=== PATIENT | male | born 1930 | race Two or more races ===

== ENCOUNTER 2018-06-08 21:50 | Inpatient (IN) | payer MEDICARE ==
[~2018-06-08] VITALS: Ht 177.8 cm; Wt 54.9 kg
--- NOTE | 2018-06-08 21:52 | NUR ---
PT BIBRA C/O SOB X12 HOURS, PER EMS WAS 86% ON RA, TACHYPNEIC, RHONCHI, ON CPAP FROM EMS. PT ON MONITOR IN BED 8. WILL CONTINUE TO MONITOR.
[2018-06-08] MEDS ORDERED: LIDOCAINE 2% JEL UROJET 10 ML MM ONE (22:02)
[2018-06-08 22:04] VITALS: BP 142/98
--- NOTE | 2018-06-08 22:06 | NUR ---
RT PT PLACED ON BIPAP PER MD ORDERS. PT TOLERATING SETTING WELL. FOLLOW UP ABG. Addendum: 06/08/18 at 2208 by JAMEY POWER RT Amended: Links added.
[2018-06-08 22:24] LABS: BASOPHILS # (AUTO) 0.1 /CMM (0.0-0.2); BASOPHILS % (AUTO) 0.4 % (0.0-2.0); EOSINOPHILS % (AUTO) 1.1 % (0.0-6.0); HEMATOCRIT 46 % (39-51); HEMOGLOBIN 14.9 g/dL (13.5-17.5); LYMPHOCYTES # (AUTO) 1.7 /CMM (0.8-4.8); LYMPHOCYTES % (AUTO) 9.1 % (20.0-44.0); MEAN CORPUSCULAR HGB CONC 33 g/dl (31.0-36.0); MEAN CORPUSCULAR VOLUME 92 fL (80-96); MONOCYTES # (AUTO) 1.7 /CMM (0.1-1.30); MONOCYTES % (AUTO) 9.3 % (2.0-12.0); NEUTROPHILS % (AUTO) 80.1 % (43.0-81.0); PLATELET COUNT (AUTO) 240 /CMM (150-450); RED BLOOD CELL COUNT(AUTO) 4.96 MIL/uL (4.5-6.0); WHITE BLOOD COUNT (AUTO) 18.8 K/uL (4.3-11.0)
[2018-06-08] MEDS ORDERED: CEFTRIAXONE 1 G in IV D5W 50 ML IV ONE (22:30)
[2018-06-08] MEDS ORDERED: NITROGLYCERIN PACKET 1 GM PACKET TD ONE (22:30)
[2018-06-08] MEDS ORDERED: FUROSEMIDE 40 MG/4 ML VIAL IV ONE (22:30)
[2018-06-08 22:33] LABS: CALCIUM, SERUM 9.1 mg/dL (8.5-10.1); CARBON DIOXIDE 33 mmol/L (21-32); CHLORIDE 99 mmol/L (98-107); GLUCOSE 117 mg/dL (74-106); POTASSIUM 3.7 mmol/L (3.5-5.1); SODIUM SERUM 141 mmol/L (136-145); UREA NITROGEN, BLOOD 13 mg/dL (7-18)
[2018-06-08] MEDS ORDERED: NITROGLYCERIN PACKET 1 GM PACKET ONE (22:33)
[2018-06-08] MEDS ORDERED: CEFTRIAXONE 1GM BAG (ER ONLY) 50 ML IV ONE (22:33)
[2018-06-08] MEDS ORDERED: FUROSEMIDE 40 MG/4 ML VIAL ONE (22:33)
[2018-06-08] MEDS ORDERED: AMOX/CLAVULANATE 875 MG TABLET ONE (22:39)
[2018-06-08 22:45] LABS: ALANINE AMINOTRANSFERASE 14 U/L (12-78); ALBUMIN 3.9 g/dL (3.4-5.0); ALKALINE PHOSPHATASE 86 U/L (46-116); ASPARTATE AMINOTRANSFERASE 13 U/L (15-37); B-TYPE NATRIURETIC PEPTIDE 3137 PG/ML (0-125); BILIRUBIN,DIRECT 0.2 mg/dL (0.0-0.2); TOTAL PROTEIN, SERUM 7.3 g/dL (6.4-8.2)
[2018-06-08] MEDS ORDERED: IV PREMIX D5 1/2NS + KCL 1,000 ML IV ONE ×2 (22:47→22:55)
[2018-06-08 23:18] LABS: ABG BASE EXCESS 6.5 mmol/L; ABG OXYGEN SATURATION 99.3 % (92.0-98.5); ABG PCO2 49.9 mmHg (35.0-45.0); ABG PH 7.428 (7.350-7.450); ABG PO2 368.4 mmHg (75.0-100.0); AaDO2 149.6 mmHg; COHb 0.9 % (0.5-1.5); MetHb 0.6 % (0.0-1.5); O2Hb 97.8 % (94.0-97.0); SITE, ABG Right Radial; VENT MODE, BG bipap 15/5 r14 80%
[2018-06-08 23:21] VITALS: BP 105/75
--- NOTE | 2018-06-08 23:26 | NUR ---
FAMILY AT BEDSIDE
[2018-06-08] MEDS ORDERED: LEVOFLOXACIN 500 MG /D5W 100ML 500 MG in PREMIX 1 EA IV SCH (23:30)
[2018-06-08] MEDS ORDERED: LEVOFLOXACIN 500 MG /D5W 100ML 100 ML IV ONE (23:32)
[2018-06-08] MEDS: LEVOFLOXACIN 500 MG /D5W 100ML 500 MG in PREMIX 1 EA IV SCH (23:47)
--- NOTE | 2018-06-08 23:59 | NUR ---
NOTICED ORDER WAS PLACED WRONG BY DR. GUARDADO "LEVAQUIN 500 MG [id number]"; INFORMED HIM TO CHANGE ORDER TO "ONCE" AN ER ORDER. DR. GUARDADO CHANGED THE ORDER BUT WAS UNABLE TO UNDO INITIAL WRONG ORDER.
[2018-06-09] VITALS (18 sets, daily range): BP systolic 77–122; BP diastolic 50–75
[2018-06-09] MEDS ORDERED: LEVOFLOXACIN 500 MG /D5W 100ML 500 MG in PREMIX 1 EA IV SCH ×2
--- NOTE | 2018-06-09 00:29 | NUR ---
REPORT GIVEN TO VITALIY LYON FOR ZEE
[2018-06-09] MEDS: LEVOFLOXACIN 500 MG /D5W 100ML 500 MG in PREMIX 1 EA IV SCH (00:40)
--- NOTE | 2018-06-09 00:40 | NUR ---
RECEIVED PT IN NO ACUTE DISTRESS IN BED. PT IS ON NC @ 2LPM AND TOLERATING WELL WITH O2 SAT @ 95%. PT IS ON TELE WITH AFIB WITH BBB ON THE MONITOR. PT HAS RESCUE BIPAP AT BEDSIDE IF NEEDED. PT HAS COUGH WITH AUDIBLE PHLEM IN THROAT, PT UNABLE TO COUGH IT UP. TRIED TO SUCTION PT BUT UNABLE TO. PT HAS LEFT AC 20G THAT IS CLEAN DRY INTACT AND PATENT WITH SALINE FLUSH. PT HAS RIGHT FOREARM 20G THAT IS CLEAN DRY INTACT AND PATENT WITH D5NS WITH 20MEQ K @ 100ML/HR. BED IN LOW LOCK POSITION WITH RIALS UP X 2. CALL LIGHT WITHIN REACH AND ALL SAFETY MEASURES ENSURED AND CARRIED OUT. WILL CONTINUE TO MONITOR.
--- NOTE | 2018-06-09 01:20 | NUR ---
DR MCKEON AT BEDSIDE.
[2018-06-09] MEDS ORDERED: ACETAMINOPHEN 325 MG TABLET PO PRN (02:00)
[2018-06-09] MEDS ORDERED: TEMAZEPAM 7.5 MG CAPSULE PO PRN (02:00)
[2018-06-09] MEDS ORDERED: ONDANSETRON HCL/PF 4 MG/2 ML VIAL IVP PRN (02:00)
[2018-06-09] MEDS ORDERED: HYDROCODONE/APAP 5/325MG 1 EACH TABLET PO PRN (02:00)
[2018-06-09] MEDS ORDERED: GUAIFENESIN/D-METHORPHAN HB 5 ML UDC PO PRN (02:30)
[2018-06-09] MEDS ORDERED: IPRATROPIUM NEB FS 0.5 MG/2.5 ML AMPUL.NEB NEB PRN (02:30)
[2018-06-09] MEDS ORDERED: ALBUTEROL FS 2.5 MG/3 ML VIAL.NEB NEB PRN (02:30)
[2018-06-09] MEDS ORDERED: DOCU-141 PO (02:34)
[2018-06-09] MEDS ORDERED: METO50TA16 PO (02:34)
[2018-06-09] MEDS ORDERED: FLUT1BLS IH ×2 (02:34)
[2018-06-09] MEDS ORDERED: BUDE0.5A4 NEB (02:34)
[2018-06-09] MEDS ORDERED: LOSA50TA39 PO (02:34)
[2018-06-09] MEDS ORDERED: LACT-239 PO (02:34)
[2018-06-09] MEDS ORDERED: FURO-145 PO (02:34)
[2018-06-09] MEDS ORDERED: ACET-868 PO (02:34)
[2018-06-09] MEDS ORDERED: POTA20TA83 PO (02:34)
[2018-06-09] MEDS ORDERED: LIDOCAINE 2% JEL UROJET 10 ML MM ONE ×2 (02:47→03:00)
--- NOTE | 2018-06-09 03:00 | NUR ---
LIMA CATHETER SUCCESSFULLY PLACED WITH GOOD URINE OUTPUT. URINE CLEAR AND YELLOW. WILL CONTINUE TO MONITOR.
[2018-06-09 04:40] LABS: BASOPHILS # (AUTO) 0.1 /CMM (0.0-0.2); BASOPHILS % (AUTO) 0.4 % (0.0-2.0); HEMATOCRIT 41 % (39-51); LYMPHOCYTES # (AUTO) 1.1 /CMM (0.8-4.8); MEAN CORPUSCULAR HGB CONC 33 g/dl (31.0-36.0); MEAN CORPUSCULAR VOLUME 91 fL (80-96); MONOCYTES # (AUTO) 1.5 /CMM (0.1-1.30); NEUTROPHILS # (AUTO) 13.6 /CMM (1.8-8.9); WHITE BLOOD COUNT (AUTO) 16.4 K/uL (4.3-11.0)
[2018-06-09 04:57] LABS: ALANINE AMINOTRANSFERASE 11 U/L (12-78); ALBUMIN 3.2 g/dL (3.4-5.0); ALKALINE PHOSPHATASE 69 U/L (46-116); ASPARTATE AMINOTRANSFERASE 11 U/L (15-37); BILIRUBIN,TOTAL 0.9 mg/dL (0.2-1.0); CALCIUM, SERUM 8.9 mg/dL (8.5-10.1); CARBON DIOXIDE 34 mmol/L (21-32); CHLORIDE 101 mmol/L (98-107); GLUCOSE 132 mg/dL (74-106); MAGNESIUM 1.7 mg/dL (1.8-2.4); POTASSIUM 3.3 mmol/L (3.5-5.1); SODIUM SERUM 141 mmol/L (136-145); TOTAL PROTEIN, SERUM 6.2 g/dL (6.4-8.2); UREA NITROGEN, BLOOD 13 mg/dL (7-18)
[2018-06-09 05:11] LABS: FREE PSA 0.11 ng/mL (0.00-45); PROSTATE SPECIFIC ANTIGEN SCR 0.29 ng/mL (0.00-4.00)
[2018-06-09 05:14] LABS: CHOLESTEROL 103 mg/dL (<200); HDL CHOLESTEROL 50 mg/dL (40-60); LDL 56 mg/dL (0-99); THYROID STIMULATING HORMONE 0.571 uIU/mL (0.358-3.74); TRIGLYCERIDES 44 mg/dL (30-150)
[2018-06-09] MEDS ORDERED: Magnesium 1GM/D5W 100ML PREMIX 100 ML IV SCH (07:00)
--- NOTE | 2018-06-09 07:15 | NUR ---
RN INITIAL NOTES RECEIVED PT AWAKE, A/OX1-2. ON 02 AT 2LPM VIA NC. NO RESPIRATORY DISTRESS NOTED. NO SOB NOTED. NO SIGNS OF PAIN NOTED. IV LINES IN PLACE. IVF INFUSING. FC IN PLACE. NO HEMATURIA NOTED. BLE ELEVATED. PT COMFORTABLE. WILL MONITOR.
--- NOTE | 2018-06-09 07:43 | NUR ---
PT REMAINS IN NO ACUTE DISTRESS IN BED. PT DID NOT HAVE ANY SIGNIFICANT CHANGE IN CONDITION DURING SHIFT. ALL NEEDS MET, ALL ORDERS CARRIED OUT. WILL ENDORSE CARE TO AM RN FOR CONTINUITY OF CARE.
[2018-06-09] MEDS: PANTOPRAZOLE 40 MG VIAL IV SCH (08:22)
[2018-06-09] MEDS: POTASSIUM CHLORIDE 20 MEQ POWDER PACKET PO SCH (08:22)
--- NOTE | 2018-06-09 09:00 | NUR ---
RN NOTES 0830 SEEN AND EXAMINED BY DR DORANTES. MF AWARE OF LAB VALUES: WBC 16.4, ON IV ATB. NO ASE NOTED. POTASSIUM 3.3, ON KLORCON 40MEQ DAILY. MAGNESIUM 1.7, REPLACED. PT FOR ECHO AND CT HEAD WITHOUT CONTRAST. PER MD, PT OK TO DOWNGRADE. WILL MONITOR 0900 SEEN AND EXAMINED BY DR HERNANDEZ. PT ON 02 AT 2LPM VIA NC. 02 SAT >94%. NO SOB NOTED. NO RESPIRATORY DISTRESS NOTED. KEPT HOB ELEVATED. PT CLEAR FOR DOWNGRADE PER MD. WILL MONITOR.
[2018-06-09] MEDS: FLUTICASONE/VILANTEROL 1 EACH BLST.W.DEV IH SCH (09:17)
[2018-06-09 09:36] LABS: EOSINOPHILS % (AUTO) 0.3 % (0.0-6.0); HEMOGLOBIN 13.5 g/dL (13.5-17.5); LYMPHOCYTES % (AUTO) 6.9 % (20.0-44.0); MONOCYTES % (AUTO) 9.1 % (2.0-12.0); NEUTROPHILS % (AUTO) 83.3 % (43.0-81.0); PLATELET COUNT (AUTO) 220 /CMM (150-450)
[2018-06-09] MEDS: ENSURE CLEAR 237 ML LIQUID (MIX BERRY) PO SCH ×2 (10:21→17:02)
[2018-06-09] MEDS: ACETYLCYSTEINE 10% SOLN 400 MG/4 ML VIAL NEB SCH ×2 (10:50→14:50)
--- NOTE | 2018-06-09 11:30 | NUR ---
RN NOTES PT TRANSFERRED TO ROOM 120-2. PT AWAKE, A/OX1-2. ON 02 VIA NC. NO SOB NOTED. DENIES ANY PAIN. VS WNL. IN STABLE CONDITION. ISABELLE BURKS TOOK OVER PT'S CARE.
--- NOTE | 2018-06-09 12:00 | NUR ---
HOUSECLEANER INITIAL NOTES Patient brought in by bed from ICU for continuity of care. Patient is awake, oriented to self only, confused, uncooperative upon skin body reassessment, leads applied for tele monitor. On oxygen at 2L/min via NC, denies pain. Flores intact, draining to gravity. Maintained safety, will cont to monitor.
[2018-06-09] MEDS: ALBUTEROL FS 2.5 MG/3 ML VIAL.NEB NEB SCH ×2 (14:49→19:30)
[2018-06-09] MEDS: IPRATROPIUM NEB FS 0.5 MG/2.5 ML AMPUL.NEB NEB SCH ×2 (14:49→19:30)
[2018-06-09] MEDS: DOCUSATE SODIUM 100 MG CAPSULE PO SCH (16:56)
--- NOTE | 2018-06-09 17:13 | NUR ---
PM CARE RENDERED, REPOSITIONED PATIENT. PATIENT COMPLAIN OF SCROTAL PAIN DURING PERINEAL CARE, PO PRN TYLENOL GIVEN, WILL REASSESS. V-TACH IN THE TELE MONITOR REPORTED, NOTIFIED DR. DORANTES WITH NO NEW ORDERS AT THIS TIME.
--- NOTE | 2018-06-09 18:43 | NUR ---
NEUROPSYCHOLOGY DIVISION CHIEF CLOSING NOTES Patient in bed, assisted with feeding, poor appetite, on nutritional supplement provided. Stable on RA, still Ventricular, V-tach with junctional rhythm in the tele monitor, MD is aware. Dr. López/cardio to see the patient. Flores intact, draining to gravity, bag off the floor. Magnesium was supplemented today prior transfer from ICU, low potassium 3.3, did not receive additional supplement per report, patient is on KCL 40meq daily. Maintained safety, will endorse to oncoming RN.
[2018-06-10] VITALS: BP 102/71
[2018-06-10] MEDS: ACETYLCYSTEINE 10% SOLN 400 MG/4 ML VIAL NEB SCH ×3 (00:28→14:43)
[2018-06-10] MEDS: IPRATROPIUM NEB FS 0.5 MG/2.5 ML AMPUL.NEB NEB SCH ×4 (00:31→20:04)
[2018-06-10] MEDS: ALBUTEROL FS 2.5 MG/3 ML VIAL.NEB NEB SCH ×4 (00:31→20:04)
[2018-06-10] MEDS: LEVOFLOXACIN 250 MG /D5W 50 ML 250 MG in PREMIX 1 EA IV SCH (00:38)
[2018-06-10 04:00] VITALS: BP 104/58
[2018-06-10 08:00] VITALS: BP 106/58
[2018-06-10] MEDS: FLUTICASONE/VILANTEROL 1 EACH BLST.W.DEV IH SCH ×2 (09:00→09:57)
[2018-06-10] MEDS: DOCUSATE SODIUM 100 MG CAPSULE PO SCH ×2 (09:56→19:06)
[2018-06-10] MEDS: POTASSIUM CHLORIDE 20 MEQ POWDER PACKET PO SCH (09:56)
[2018-06-10] MEDS: PANTOPRAZOLE 40 MG VIAL IV SCH (09:56)
[2018-06-10] MEDS: ENSURE CLEAR 237 ML LIQUID (MIX BERRY) PO SCH ×2 (09:56→19:05)
[2018-06-10 12:00] VITALS: BP 109/61
[2018-06-10] MEDS ORDERED: LORAZEPAM INJ 2 MG/ML VIAL IV PRN (14:00)
--- NOTE | 2018-06-10 15:48 | NUR ---
DEBT RECOVERY OFFICER NOTE PATIENT VERY AGITATED AND WITH AGGRESSIVE BEHAVIOR, HITTING AND KICKING AND PULLED OUT AN IV SITE ON LEFT AC. ATTEMPTED TO REORIENT PATIENT WITH NO SUCCESS. PATIENT CONTINUED TO HIT AND YELL. APPLIED BILATERAL SOFT WRIST RESTRAINTS. CONTACTED MD IMMEDIATELY AND RECEIVED AN ORDER FOR RESTRAINTS AND PSYCH CONSULT AND PRN IV ATIVAN. PATIENT SAFETY CHECKED AND ASSURED FREQUENTLY, REORIENTED. WILL CONTINUE TO MONITOR CLOSELY. ALSO FAXED FACE SHEET TO [employer] FOR PSYCH CONSULT.
[2018-06-10 16:00] VITALS: BP 128/58
--- NOTE | 2018-06-10 19:30 | NUR ---
[facility]G RN NOTE PATIENT RESTING IN BED IN STABLE CONDITION, NO SIGNS OF PAIN OR RESPIRATORY DISTRESS NOTED. PATIENT WITH VERY AGGRESSIVE BEHAVIOR THROUGHOUT THE DAY, BILATERAL SOFT WRIST RESTRAINTS ON. FREQUENTLY OFFERED FLUIDS AND SNACKS, PO INTAKE OK TODAY. IV SITE ON RIGHT FOREARM INTACT SALINE LOCK. BED ALARM ON, CALL LIGHT WITHIN REACH, BED IN LOW LOCKED POSITION, ENDORSED TO WELDING PROCESS SPECIALIST NURSE FOR CONTINUITY OF CARE.
[2018-06-10 20:00] VITALS: BP 115/67
[2018-06-10] MEDS: METOPROLOL TARTRATE 25 MG TABLET PO SCH (21:09)
[2018-06-11] MEDS: LEVOFLOXACIN 250 MG /D5W 50 ML 250 MG in PREMIX 1 EA IV SCH (00:24)
[2018-06-11] MEDS: IPRATROPIUM NEB FS 0.5 MG/2.5 ML AMPUL.NEB NEB SCH ×2 (01:30→07:39)
[2018-06-11] MEDS: ALBUTEROL FS 2.5 MG/3 ML VIAL.NEB NEB SCH ×2 (01:30→07:39)
[2018-06-11] MEDS: ACETYLCYSTEINE 10% SOLN 400 MG/4 ML VIAL NEB SCH ×2 (01:30→07:39)
[2018-06-11 06:42] LABS: BASOPHILS % (AUTO) 0.4 % (0.0-2.0); EOSINOPHILS % (AUTO) 2.4 % (0.0-6.0); HEMATOCRIT 37 % (39-51); HEMOGLOBIN 12.4 g/dL (13.5-17.5); LYMPHOCYTES # (AUTO) 1.1 /CMM (0.8-4.8); LYMPHOCYTES % (AUTO) 9.6 % (20.0-44.0); MEAN CORPUSCULAR HGB CONC 33 g/dl (31.0-36.0); MEAN CORPUSCULAR VOLUME 90 fL (80-96); MONOCYTES # (AUTO) 1.3 /CMM (0.1-1.30); MONOCYTES % (AUTO) 11.6 % (2.0-12.0); NEUTROPHILS # (AUTO) 8.4 /CMM (1.8-8.9); PLATELET COUNT (AUTO) 214 /CMM (150-450); RED BLOOD CELL COUNT(AUTO) 4.13 MIL/uL (4.5-6.0); WHITE BLOOD COUNT (AUTO) 11.1 K/uL (4.3-11.0)
[2018-06-11 06:58] LABS: CALCIUM, SERUM 8.8 mg/dL (8.5-10.1); CARBON DIOXIDE 34 mmol/L (21-32); CHLORIDE 103 mmol/L (98-107); GLUCOSE 79 mg/dL (74-106); PHOSPHORUS 2.7 mg/dL (2.5-4.9); POTASSIUM 3.5 mmol/L (3.5-5.1); SODIUM SERUM 141 mmol/L (136-145); UREA NITROGEN, BLOOD 16 mg/dL (7-18)
--- NOTE | 2018-06-11 07:30 | NUR ---
RN OPENING NOTES RECEIVED PATIENT IN BED, AWAKE, A/OX1. WITH EPISODE OF CONFUSION. ABLE TO MAKE NEEDS KNOWN. PATIENT ON OXYGEN SUPPORT VIA NASAL CANNULA AT 2 LPM. NO S/SX OF DISTRESS, NO SOB NOTED AT THIS TIME. SKIN IS WARM TO TOUCH, IV LINE ON L FA G20: IN PLACE AND INTACT: SL. BILATERAL ARM ON SOFT RESTRAINTS: RELEASE AND REPLACE FOR ASSESSMENT. SKIN INTACT, NO NEW SKIN BREAKDOWN OR DISCOLORATION NOTED. ABLE TO MOVE HANDS FREELY. SAFETY MEASURES OBSERVED AND MAINTAINED. HOB ELEVATED. SRX2, BED IN LOCKED/LOWEST POSITION. CALL LIGHT IN REACH. WILL CONT TO MONITOR
[2018-06-11 08:00] VITALS: BP_SYST 120; BP_SYST 133; BP_DIAS 72; BP_DIAS 85
[2018-06-11] MEDS: PANTOPRAZOLE 40 MG VIAL IV SCH (09:41)
[2018-06-11] MEDS: POTASSIUM CHLORIDE 20 MEQ POWDER PACKET PO SCH (09:41)
[2018-06-11] MEDS: DOCUSATE SODIUM 100 MG CAPSULE PO SCH (09:41)
[2018-06-11 09:42] VITALS: BP 133/85
[2018-06-11] MEDS: ENSURE CLEAR 237 ML LIQUID (MIX BERRY) PO SCH (09:42)
[2018-06-11] MEDS: METOPROLOL TARTRATE 25 MG TABLET PO SCH (09:42)
[2018-06-11] MEDS: FLUTICASONE/VILANTEROL 1 EACH BLST.W.DEV IH SCH (09:42)
--- NOTE | 2018-06-11 11:00 | NUR ---
m/s tip tester: notes Spoke with Kathy (barn hand)/[facility] [phone] and informed her that pt is returning there and leaving here at 1300 via ambulance, spoke to her over the phone, stated, "please send all the paperworks."
--- NOTE | 2018-06-11 11:24 | NUR ---
m/s hay farmer: notes Jalil (son) notified and made aware re: d'c back to [facility] this afternoon, spoke to him over the phone and also asked him about his immunizations, stated, "i know he had both last year in the fall, but i don't know the exact month."
--- NOTE | 2018-06-11 13:32 | NUR ---
RN NOTES PATIENT DISCHARGE. EXIT CARE DONE. MARISA (LUMBER PILER) OBTAINED VACCINATION STATUS AND NOTED. PHOTOS TAKEN AND NOTED, FILED. ALL BELONGINGS ACCOUNTED FOR AND RETURNED TO PATIENT. ALL QUESTIONS AND CONCERNS OF SON ATTENDED AND ADDRESSED. ALL DISCHARGE AND MEDICATION INSTRUCTIONS GIVEN TO SON- WHO WAS AT BEDSIDE ON DISCHARGE. PACKET NOT ABLE TO BE SIGNED BY PATIENT DUE TO MENTAL STATUS. PACKET HANDED OVER TO EMT. IV LINE REMOVED. ID BAND REMOVED. PATIENT BROUGHT OUT FROM THE UNIT VIA GURNEY ACCOMPANIED BY SON, 2 EMT
== END 2018-06-11 13:33 | disposition home or self-care (01) | DRG 871 ==
LOC: ER 21:52 → ICU 23:11 → TELE1 06-09 11:25 → MEDSG1 06-10 16:43
PROVIDERS: ADMIT Internal Medicine; ATTEND Nurse Practitioner Acute Care
PROC: 5A09357 Assistance with Respiratory Ventilation, Less than 24 Consecutive Hours, Continuous Positive Airway Pressure (ICD-10-PCS; principal; 2018-06-08)
DX: A41.9 Sepsis, unspecified organism (principal); J96.01 Acute respiratory failure with hypoxia; J96.02 Acute respiratory failure with hypercapnia; G92 Toxic encephalopathy; I50.33 Acute on chronic diastolic (congestive) heart failure; J18.9 Pneumonia, unspecified organism; E43 Unspecified severe protein-calorie malnutrition; R64 Cachexia; D68.59 Other primary thrombophilia; E83.42 Hypomagnesemia; I25.10 Atherosclerotic heart disease of native coronary artery without angina pectoris; I11.0 Hypertensive heart disease with heart failure; I48.2 Chronic atrial fibrillation; E11.9 Type 2 diabetes mellitus without complications; E87.6 Hypokalemia; F03.90 Unspecified dementia, unspecified severity, without behavioral disturbance, psychotic disturbance, mood disturbance, and anxiety; J40 Bronchitis, not specified as acute or chronic; Z87.891 Personal history of nicotine dependence
CPT/HCPCS: 36415; 36600; 70450-TC; 71045-TC; 80048-TC; 80053-TC; 80061-TC; 80076-TC; 82803-TC; 83605-TC; 83735-TC; 83880; 84100-TC; 84153-TC; 84154-TC; 84443-TC; 84484-TC; 85025-TC; 85730-TC; 87040-TC; 87400; 93307-TC; 94799-TC; 99082-TC; A4216; C9113; G0378; J0696; J1940; J1956; J2060; J3475; J3490; J7050; J7060